=== PATIENT | male | born 1980 | race Caucasian/White ===

== ENCOUNTER → 2017-08-04 | Outpatient (CLI) | payer OTHER ==
[~2017-08-04] MED LIST: KEFLEX500 MG PO; NOHOMEMEDS; PERCOCET 5/31 TABLET PO
== END | disposition home or self-care (01) ==
LOC: RES 07:34
DX: R05 Cough (principal)
CPT/HCPCS: 94070; 94726; 94729

== ENCOUNTER 2018-03-08 19:14 | Emergency (ER) | payer OTHER ==
[~2018-03-08] VITALS: Ht 190.5 cm; Wt 104.7 kg
[2018-03-08 20:18] LABS: HEMATOCRIT 45.1 % (38.0-50.0); HEMOGLOBIN 15.9 G/DL (12.5-16.6); MCH 30.3 PG (29.0-34.0); MCHC 35.3 G/DL (30.0-36.0); MCV 85.9 FL (86-99); PLATELET COUNT 230 K/uL (156-360); RBC DIS.WIDTH-CV 11.9 % (11.8-14.6); RBC DIS.WIDTH-SD 36.9 % (39-53); RED BLOOD COUNT 5.25 M/uL (4.00-5.50); WHITE BLOOD COUNT 6.8 K/uL (4.1-10.2)
[2018-03-08 20:34] LABS: CHLORIDE 106 mEq/L (99-109); POTASSIUM 4.1 mEq/L (3.7-5.4); SODIUM 141 mEq/L (136-147)
[2018-03-08 20:35] LABS: GLUCOSE 93 mg/dL (70-99)
[2018-03-08 20:39] LABS: CREATININE 0.9 mg/dL (0.6-1.3); GFR ESTIMATE (CALCULATED) > 59 mL/min/ (58.99-99999)
[2018-03-08 20:40] LABS: UREA NITROGEN (BUN) 12 mg/dL (9-23)
[2018-03-08 20:42] LABS: TROP-I INTERPRETATION NEGATIVE; TROPONIN-I < 0.01 ng/mL (0.0-0.30)
[2018-03-08 22:14] LABS: D-DIMER ELISA < 150.00 ng/mLDDU (<230)
[2018-03-08 23:07] VITALS: BP 128/78
== END 2018-03-08 23:08 | disposition home or self-care (01) ==
LOC: EXP 19:14 → EME 19:14 → EXP 23:08
PROVIDERS: Physician Assistant
DX: R07.9 Chest pain, unspecified (principal); R55 Syncope and collapse; R42 Dizziness and giddiness; Z88.2 Allergy status to sulfonamides
CPT/HCPCS: 71046; 80048; 84484; 85027; 85379; 93005; 99281; 99283